=== PATIENT | female | born 1995 | race Two or more races ===

== ENCOUNTER 2018-12-01 16:12 | Emergency (ER) | payer BC, OTHER ==
[~2018-12-01] VITALS: Ht 165.1 cm; Wt 63.5 kg
[2018-12-01 16:29] VITALS: BP 120/86
[2018-12-01] MEDS ORDERED: IBUPROFEN 400 MG TABLET ONE (16:51)
[2018-12-01] MEDS ORDERED: IBUPROFEN 400 MG TABLET PO ONE (17:00)
--- NOTE | 2018-12-01 18:58 | NUR ---
Pt upated with plan of care. Expressed frustration regarding Lenth of stay/Results. Explained in detail process/plan of care. Pt amenable to waiting for XR results
== END 2018-12-01 19:20 | disposition home or self-care (01) ==
LOC: ER 16:12
DX: M54.2 Cervicalgia (principal); M25.561 Pain in right knee; M25.562 Pain in left knee; M54.5 Low back pain; V49.59XA Passenger injured in collision with other motor vehicles in traffic accident, initial encounter; Y93.89 Activity, other specified; Y92.413 State road as the place of occurrence of the external cause; Y99.8 Other external cause status
CPT/HCPCS: 72040-TC; 72100-TC; 73564-TC; 84703-TC